=== PATIENT | male | born 1995 | race Caucasian/White ===

== ENCOUNTER → 2016-12-07 | Outpatient (CLI) | payer OTHER | LOC: COL.RAD 08:11 | DX: K21.9 Gastro-esophageal reflux disease without esophagitis (principal) | CPT/HCPCS: A9541 ==

== ENCOUNTER 2016-12-09 06:35 | Day surgery (SDC) | payer OTHER ==
[~2016-12-09] VITALS: Ht 175.3 cm; Wt 80.3 kg
[2016-12-09 07:21] VITALS: BP 118/85; PULSE 65; TEMP 98.1
[2016-12-09 08:05] VITALS: BP 111/61; PULSE 60; TEMP 97.6
[2016-12-09 08:20] VITALS: BP 121/77; PULSE 81
[2016-12-09 08:35] VITALS: BP 123/79; PULSE 77
== END 2016-12-09 08:45 | disposition home or self-care (01) ==
LOC: SDCO 06:35
DX: K21.0 Gastro-esophageal reflux disease with esophagitis (principal)
CPT/HCPCS: J2250; J3010; J7030